=== PATIENT | female | born 1990 | race Two or more races ===

== ENCOUNTER 2016-12-01 20:31 | Emergency (ER) | payer OTHER, SELFPAY ==
[~2016-12-01] VITALS: Ht 162.6 cm; Wt 125.0 kg
--- NOTE | 2016-12-01 22:25 | REP ---
Clinical: Trauma. Rule out foreign body. Technique: AP and lateral views of the left foot with BB marker at the site of laceration. Findings: No acute fracture or dislocation is appreciated. Surrounding soft tissues are grossly unremarkable. BB marker identifying the site of trauma/laceration is appreciated on lateral radiograph and no adjacent foreign body material is not identified. Impression: 1. No acute fracture dislocation. 2. No obvious foreign body. Signed by Martín Ventura MD 12/01/2016 10:17 P
[2016-12-01] MEDS ORDERED: LIDOCAINE 1% MDV 20ML VIAL IM ONE (23:00)
[2016-12-01] MEDS ORDERED: CEPHALEXIN 500 MG CAP PO ONE (23:30)
[2016-12-01] MEDS ORDERED: ADACEL/BOOSTRIX VACCINE (DIPHTH/PERTUSS/ACELL/TETANUS)0.5ML SYR (90715) IM ONE (23:30)
[2016-12-01 23:34] VITALS: BP 147/82
[2016-12-01] MEDS ORDERED: KEFL500C17 PO (23:40)
== END 2016-12-01 23:59 | disposition home or self-care (01) ==
LOC: M ED 20:31
DX: S91.342A Puncture wound with foreign body, left foot, initial encounter (principal); W25.XXXA Contact with sharp glass, initial encounter; Y92.099 Unspecified place in other non-institutional residence as the place of occurrence of the external cause; Y93.89 Activity, other specified; Y99.9 Unspecified external cause status; I10 Essential (primary) hypertension; E03.9 Hypothyroidism, unspecified

== ENCOUNTER → 2016-12-31 | Outpatient (REF) | payer OTHER ==
[~2016-12-31] MED LIST: KEFL500C17 PO
== END ==
LOC: M SFHCLERA 16:58
PROVIDERS: ATTEND Nurse Practitioner Family
DX: Z20.89 Contact with and (suspected) exposure to other communicable diseases (principal)

== ENCOUNTER → 2017-05-31 | Outpatient (REF) | payer OTHER | LOC: M SFHCLERA 09:32 | DX: J02.9 Acute pharyngitis, unspecified (principal) ==

== ENCOUNTER → 2017-09-20 | Outpatient (REF) | payer OTHER | LOC: M SFHCLERA 11:52 | DX: J02.9 Acute pharyngitis, unspecified (principal) ==

== ENCOUNTER 2017-11-14 16:21 | Emergency (ER) | payer OTHER ==
[2017-11-14 17:27] LABS: BASO # 0.1 10^3/uL (0.0-0.2); BASO % 0.6 % (0.0-1.0); EOS # 0.1 10^3/uL (0.0-0.50); EOS % 1.4 % (0.0-3.0); HEMATOCRIT 38.9 % (36.0-47.0); HEMOGLOBIN 12.9 g/dl (12.0-15.5); IMMATURE GRANULOCYTE % 0.6 % (0-3.0); LYMPH % 32.9 % (24.0-44.0); MEAN CORPUSCULAR HEMOGLOBIN 29.7 pg (27.0-33.0); MEAN CORPUSCULAR HGB CONC 33.2 g/dl (32.0-36.5); MEAN CORPUSCULAR VOLUME 89.4 fl (80.0-96.0); MONO # 0.8 10^3/uL (0.0-0.8); NEUTROPHILS % 55.5 % (36.0-66.0); PLATELET COUNT, AUTOMATED 288 10^3/uL (150-450); RED BLOOD COUNT 4.35 10^6/uL (4.00-5.40); RED CELL DISTRIBUTION WIDTH 15.6 % (11.5-14.5); WHITE BLOOD COUNT 9.1 10^3/uL (4.0-10.0)
[2017-11-14 17:56] LABS: ALBUMIN 3.6 GM/DL (3.2-5.2); ALKALINE PHOSPHATASE 56 U/L (45-117); ALT/SGPT 94 U/L (12-78); ANION GAP 10 MEQ/L (8-16); AST/SGOT 74 U/L (7-37); BILIRUBIN,TOTAL 0.3 MG/DL (0.2-1.0); BLOOD UREA NITROGEN 10 MG/DL (7-18); CALCIUM LEVEL 9.2 MG/DL (8.5-10.1); CARBON DIOXIDE LEVEL 29 MEQ/L (21-32); CHLORIDE LEVEL 103 MEQ/L (98-107); CREATININE FOR GFR 0.79 MG/DL (0.55-1.30); FREE THYROXINE INDEX 3.4 % (1.3-4.8); GLOMERULAR FILTRATION RATE > 60.0 (>60); GLUCOSE, FASTING 114 MG/DL (70-100); POTASSIUM SERUM 4.1 MEQ/L (3.5-5.1); SODIUM LEVEL 142 MEQ/L (136-145); T UPTAKE 31 % (30-39); THYROXINE (T4) 10.9 UG/DL (4.5-12.0); TOTAL PROTEIN 8.1 GM/DL (6.4-8.2)
[2017-11-14] MEDS: CARVedilol 12.5 MG TAB PO (18:52)
[2017-11-14 19:21] LABS: APPEARANCE, URINE HAZY (CLEAR); BACTERIA, URINE AUTO NEGATIVE (NEGATIVE); BILIRUBIN, URINE AUTO NEGATIVE (NEGATIVE); BLOOD, URINE BLOOD NEGATIVE (NEGATIVE); COLOR, URINE YELLOW (YELLOW); GLUCOSE, URINE (UA) AUTO NEGATIVE (NEGATIVE); KETONE, URINE AUTO NEGATIVE (NEGATIVE); LEUKOCYTE ESTERASE, URINE AUTO TRACE (NEGATIVE); MUCUS, URINE SMALL (NEGATIVE); NITRITE, URINE AUTO NEGATIVE (NEGATIVE); PROTEIN, URINE AUTO 1+ mg/dL (NEGATIVE); RBC, URINE AUTO 1 /HPF (0-3); SPECIFIC GRAVITY URINE AUTO 1.019 (1.002-1.035); SQUAMOUS EPITHELIAL CELL UR AU 5 /HPF (0-6); WBC, URINE AUTO 9 /HPF (0-3)
== END 2017-11-14 20:09 | disposition home or self-care (01) ==
LOC: M ED 16:21
DX: I10 Essential (primary) hypertension (principal); E03.9 Hypothyroidism, unspecified
CPT/HCPCS: 70450

== ENCOUNTER 2018-09-26 17:14 | Emergency (ER) | payer OTHER ==
[~2018-09-26] VITALS: Ht 160 cm; Wt 122.7 kg
[~2018-09-26 17:14] MED LIST changes: +CARV25TA PO; +CHLO25TA PO; +HYDR50TA70 PO; +LEVO100T5 PO; +METO50TA7 PO; +SING10TA32 PO
[2018-09-26 19:00] LABS: BASO # 0.1 10^3/uL (0.0-0.2); BASO % 0.5 % (0.0-1.0); EOS # 0.2 10^3/uL (0.0-0.50); EOS % 1.7 % (0.0-3.0); HEMATOCRIT 39.7 % (36.0-47.0); HEMOGLOBIN 13.5 g/dl (12.0-15.5); LYMPH % 30.8 % (24.0-44.0); MEAN CORPUSCULAR VOLUME 94.1 fl (80.0-96.0); MONO # 0.8 10^3/uL (0.0-0.8); MONO % 8.2 % (0.0-5.0); NEUTROPHILS # 5.8 10^3/uL (1.8-7.7); NEUTROPHILS % 58.4 % (36.0-66.0); PLATELET COUNT, AUTOMATED 301 10^3/uL (150-450); RED BLOOD COUNT 4.22 10^6/uL (4.00-5.40); WHITE BLOOD COUNT 9.9 10^3/uL (4.0-10.0)
[2018-09-26 19:11] LABS: INR 0.96; PROTHROMBIN TIME 12.5 SECONDS (11.8-14.0)
[2018-09-26 19:48] LABS: ALBUMIN 3.7 GM/DL (3.2-5.2); ALT/SGPT 239 U/L (12-78); BILIRUBIN,TOTAL 0.4 MG/DL (0.2-1.0); BLOOD UREA NITROGEN 10 MG/DL (7-18); CALCIUM LEVEL 9.2 MG/DL (8.5-10.1); CARBON DIOXIDE LEVEL 28 MEQ/L (21-32); CHLORIDE LEVEL 98 MEQ/L (98-107); CK-MB VALUE MASS < 1.0 NG/ML (<3.6); CPK CREATINE PHOSPHOKINASE 213 U/L (26-192); CREATININE FOR GFR 0.86 MG/DL (0.55-1.30); GLOMERULAR FILTRATION RATE > 60.0 (>60); GLUCOSE, FASTING 114 MG/DL (70-100); LIPASE 150 U/L (73-393); MB/CK RELATIVE INDEX 0.47 (< OR =4); POTASSIUM SERUM 4.1 MEQ/L (3.5-5.1); SODIUM LEVEL 137 MEQ/L (136-145); TOTAL PROTEIN 8.4 GM/DL (6.4-8.2); TROPONIN I < 0.02 NG/ML (< 0.10)
[2018-09-26] MEDS ORDERED: PENI500T PO (19:54)
[2018-09-26] MEDS ORDERED: CETI10TA4 PO (19:54)
[2018-09-26] MEDS ORDERED: GABAPENTIN 300 MG CAP PO ONE (20:45)
[2018-09-26] MEDS ORDERED: NS 1,000 ML IV ONE (20:45)
--- NOTE | 2018-09-26 20:59 | REP ---
Clinical: Syncope with hypertension . Comparison: 11/14/2017 . Findings: The ventricles, sulci, and cisterns are normal in position and appearance. Coughlin-white differentiation is maintained. No acute intracranial hemorrhage, mass/mass effect, pathology or trauma/injury. No evidence for acute infarction. No extra-axial fluid collection. Calvarium is intact. Paranasal sinuses and mastoid air cells are clear. Impression: Normal noncontrast head CT. No evidence for acute intracranial pathology or trauma/injury. Electronically Signed by Martín Ventura MD 09/26/2018 08:51 P
[2018-09-26 23:44] LABS: CK-MB VALUE MASS < 1.0 NG/ML (<3.6); CPK CREATINE PHOSPHOKINASE 186 U/L (26-192); MAGNESIUM LEVEL 1.5 MG/DL (1.8-2.4); MB/CK RELATIVE INDEX 0.54 (< OR =4); TROPONIN I < 0.02 NG/ML (< 0.10)
[2018-09-27 00:26] VITALS: BP 140/84
--- NOTE | 2018-09-27 08:35 | REP ---
Clinical: Chest pain and shortness of breath . Comparison: None . Technique: PA and lateral. Findings: The mediastinum and cardiac silhouette are normal. The lung hillman are clear and without acute consolidation, effusion, or pneumothorax. The skeletal structures are intact and normal. Impression: 1. No acute cardiopulmonary process. Electronically Signed by Martín Ventura MD 09/27/2018 06:11 A
--- NOTE | 2018-09-27 15:31 | ECGEPIP ---
[facility] - ED Test Date: 2018-09-26 Pat Name: PACHECO QUIROGA Department: Room: - Gender: Female [employer]: [facility] : 1990 Requested By: Mark Hoffman Order Number: [id number] Reading MD: Taylor Fajardo Measurements Intervals [place] Rate: 90 P: 4 CA: 165 QRS: 13 QRSD: 82 T: 7 QT: 366 QTc: 449 Interpretive Statements SINUS RHYTHM MODERATE VOLTAGE CRITERIA FOR LVH, CONSIDER NORMAL VARIANT NONSPECIFIC T-WAVE ABNORMALITY INCREASED RATE 11/14/17 Electronically Signed on 09-27-2018 15:31:15 EDT by Taylor Fajardo
== END 2018-09-27 00:23 | disposition home or self-care (01) ==
LOC: M ED 17:14
DX: R20.9 Unspecified disturbances of skin sensation (principal); R55 Syncope and collapse; R07.89 Other chest pain; R06.02 Shortness of breath; R00.0 Tachycardia, unspecified; I10 Essential (primary) hypertension; E11.9 Type 2 diabetes mellitus without complications; J45.909 Unspecified asthma, uncomplicated; E28.2 Polycystic ovarian syndrome; E88.81 Metabolic syndrome and other insulin resistance; Z79.899 Other long term (current) drug therapy; Z79.2 Long term (current) use of antibiotics

== ENCOUNTER 2020-02-15 12:37 | Emergency (ER) | payer OTHER ==
[~2020-02-15] VITALS: Ht 160 cm; Wt 120.8 kg
[~2020-02-15 12:37] MED LIST changes: +CETI10TA4 PO; +PENI500T PO
[2020-02-15] MEDS ORDERED: MORPHINE 2 MG/ML 1ML VIAL (J2270) IV PRN (13:45)
[2020-02-15] MEDS ORDERED: NS 1,000 ML IV ONE (13:45)
[2020-02-15] MEDS ORDERED: ONDANSETRON 4MG/2ML VIAL IV ONE (13:45)
[2020-02-15 14:05] LABS: BASO # 0.1 10^3/uL (0.0-0.2); BASO % 0.4 % (0.0-1.0); EOS # 0.1 10^3/uL (0.0-0.5); EOS % 0.9 % (0.0-3.0); HEMATOCRIT 41.8 % (36.0-47.0); HEMOGLOBIN 13.6 g/dl (12.0-15.5); LYMPH # 3.9 10^3/uL (1.5-5.0); LYMPH % 31.7 % (24.0-44.0); MEAN CORPUSCULAR HEMOGLOBIN 29.6 pg (27.0-33.0); MEAN CORPUSCULAR HGB CONC 32.5 g/dl (32.0-36.5); MEAN CORPUSCULAR VOLUME 90.9 fl (80.0-96.0); MONO # 0.8 10^3/uL (0.0-0.8); MONO % 6.7 % (0.0-5.0); NEUTROPHILS # 7.3 10^3/uL (1.5-8.5); PLATELET COUNT, AUTOMATED 375 10^3/uL (150-450); WHITE BLOOD COUNT 12.2 10^3/uL (4.0-10.0)
[2020-02-15] MEDS ORDERED: ISOVUE-370 76% 100ML VIAL As Ordered ONE (14:11)
[2020-02-15 14:16] LABS: INR 1.01; PARTIAL THROMBOPLASTIN TIME 26.6 SECONDS (24.2-38.5); PROTHROMBIN TIME 13.5 SECONDS (12.5-14.3)
[2020-02-15 14:31] LABS: ALBUMIN 4.2 GM/DL (3.2-5.2); BILIRUBIN,DIRECT 0.2 MG/DL (0.0-0.2); BILIRUBIN,TOTAL 0.6 MG/DL (0.2-1.0); TOTAL PROTEIN 8.7 GM/DL (6.4-8.2)
--- NOTE | 2020-02-15 14:40 | REP ---
INDICATION: rectal pain, possible mass. COMPARISON: None. TECHNIQUE: Bolus 100 mL Isovue 370 scanning through the abdomen and pelvis with both coronal and sagittal reconstructions. FINDINGS: CT abdomen: The lung bases are clear. Heart is not enlarged there is no pericardial thickening or effusion. No hiatal hernia. Liver is mildly enlarged with some low-density diffusely suggesting fatty infiltration it has a vertical diameter of 20.6 cm midclavicular line. No Paddock mass or biliary dilatation. No adjacent ascites see no splenomegaly or focal lesion. No left upper quadrant ascites. The gallbladder shows no calcified stone or mass. Pancreas was unremarkable. Abdominal aorta without aneurysm or dissection. No periaortic, mesenteric or retroperitoneal pathologic sized lymphadenopathy. Small bowel loops are without dilatation or adjacent inflammatory change. Stool and gas are scattered in the colon without signs of colitis or diverticulitis in the abdomen. Adrenal glands are normal. The kidneys show symmetric enhancement and no mass, cyst, stone or hydronephrosis. There is no hydroureter or ureteral stone on either side. Lung window review of all CT slices shows no perforation or free air in the abdomen or pelvis. Bone windows show the lumbar and lower thoracic spine without compression deformity or destructive lesion. Posterior elements intact. Visualized lower ribs were intact. CT pelvis: The sacrum, SI joints, pelvis and hips without acute finding. Uterus anteverted not enlarged. Ovaries are symmetric without mass. There is no pelvic free fluid. Distal left colon and sigmoid were unremarkable without mass or inflammatory change. Rectum is collapsed. No definite mass or abnormal fluid collection in the perirectal region on this examination. There is no ventral or inguinal hernia nor pathologic sized inguinal adenopathy. Cecum is without inflammatory change. There is no appendix history and none seen. IMPRESSION: 1. No sign of colitis, diverticulitis a stricture or mass involving the abdominal and pelvic portions of the colon. Rectum is collapsed and I cannot confirm any visible mass by CT nor abnormal fluid collection the perirectal region. 2. Small bowel loops and stomach unremarkable there is no hiatal hernia. 3. Mild hepatomegaly with fatty infiltration of the liver but no hepatic mass, biliary dilatation, gallbladder, spleen, adrenal or renal abnormalities. 4. No renal, ureteral or bladder stone. No pelvic mass. No ascites or free air. Nothing acute. <Electronically signed by Gatito Dominguez > 02/15/20 [id number]
[2020-02-15] MEDS ORDERED: LIDOCAINE 2% JELLY 5ML TUBE TOP ONE (15:45)
[2020-02-15] MEDS ORDERED: KETOROLAC 30 MG/ML 1ML VIAL IV ONE (16:15)
[2020-02-15] MEDS ORDERED: AUGMENTIN 875 MG TAB PO ONE (16:15)
[2020-02-15] MEDS ORDERED: KETO10TAB PO (17:12)
[2020-02-15] MEDS ORDERED: rectiv PR (17:12)
[2020-02-15] MEDS ORDERED: MIRA3350 PO (17:12)
[2020-02-15] MEDS ORDERED: AUGM875T28 PO (17:12)
[2020-02-15 17:34] VITALS: BP 165/75
== END 2020-02-15 17:37 | disposition home or self-care (01) ==
LOC: M ED 12:37
DX: K62.89 Other specified diseases of anus and rectum (principal); K76.0 Fatty (change of) liver, not elsewhere classified; E11.9 Type 2 diabetes mellitus without complications; I10 Essential (primary) hypertension; J45.909 Unspecified asthma, uncomplicated; Z79.899 Other long term (current) drug therapy
CPT/HCPCS: 74177; 80047; 80076; 83690; 84702; 85025; 85610; 85730; 86850; 86900; 86901; 96361; 96374; 96375; 99284; J1885; J2270; J2405; Q9967

== ENCOUNTER 2025-02-06 14:59 | Emergency (ER) | payer OTHER ==
[~2025-02-06] VITALS: Ht 162.6 cm; Wt 120.5 kg
[~2025-02-06 14:59] MED LIST changes: +AUGM875T28 PO; +KETO10TAB PO; +MIRA3350 PO; +MONT-5 PO; -SING10TA32 PO; +rectiv PR
[2025-02-06 15:11] VITALS: TEMP 98.5
[2025-02-06 15:50] LABS: BASO # 0.1 10^3/uL (0.0-0.2); BASO % 0.5 % (0.0-1.0); EOS # 0.2 10^3/uL (0.0-0.5); EOS % 2.3 % (0.0-3.0); LYMPH # 2.1 10^3/uL (1.5-5.0); LYMPH % 21.7 % (24.0-44.0); MONO # 0.6 10^3/uL (0.0-0.8); MONO % 6.0 % (2.0-8.0); NEUTROPHILS # 6.6 10^3/uL (1.5-8.5); NEUTROPHILS % 68.9 % (36.0-66.0); PLATELET COUNT, AUTOMATED 228 10^3/uL (150-450)
[2025-02-06 15:56] LABS: ALT/SGPT 143 U/L (7.0-40); AST/SGOT 225 U/L (<34); CALCIUM LEVEL 8.9 MG/DL (8.5-10.1); CARBON DIOXIDE LEVEL 28 MMOL/L (20-31); CHLORIDE LEVEL 99 MMOL/L (98-107); CREATININE FOR GFR 0.54 MG/DL (0.55-1.30); GLOMERULAR FILTRATION RATE > 90.0 (>60); POTASSIUM SERUM 3.6 MMOL/L (3.5-5.1); SODIUM LEVEL 139 MMOL/L (136-145)
[2025-02-06 16:20] LABS: CK-MB VALUE MASS < 1.0 NG/ML (<3.6)
[2025-02-06] MEDS ORDERED: ISOVUE-370 76% 100 ML VIAL As Ordered ONE (16:22)
[2025-02-06 16:26] LABS: CPK CREATINE PHOSPHOKINASE 89 U/L (34-145)
[2025-02-06 16:46] LABS: HCG, SERUM QUALITATIVE NEGATIVE (NEGATIVE)
[2025-02-06 16:59] LABS: CK-MB VALUE MASS < 1.0 NG/ML (<3.6)
[2025-02-06 17:01] LABS: CPK CREATINE PHOSPHOKINASE 82 U/L (34-145)
[2025-02-06 17:45] VITALS: BP 128/76; O2SAT 96
== END 2025-02-06 18:13 | disposition home or self-care (01) ==
LOC: M ED 14:59 → EDBD 14:59 → M ED 18:13
DX: N63.11 Unspecified lump in the right breast, upper outer quadrant (principal); I10 Essential (primary) hypertension; K76.0 Fatty (change of) liver, not elsewhere classified; E28.2 Polycystic ovarian syndrome; F12.10 Cannabis abuse, uncomplicated; F10.10 Alcohol abuse, uncomplicated; Z79.2 Long term (current) use of antibiotics; Z79.899 Other long term (current) drug therapy
CPT/HCPCS: 36415; 71275; 80053; 82550; 82553; 84484; 84703; 85025; 87486; 87581; 87633; 87798; 93005; 93041; 94760; 99285; Q9967